=== PATIENT | female | born 1990 | race Caucasian/White ===

== ENCOUNTER 2018-09-13 18:45 | Emergency (ER) | payer OTHER ==
[2018-09-13 18:55] VITALS: BP 114/69; PULSE 79; TEMP 98.2; BMI 32.9
--- NOTE | 2018-09-13 19:31 | PDOC ---
History of Present Illness - General Chief Complaint: Eye Problem Stated Complaint: LEFT/ITCHY/WATERY EYE Time Seen by Provider: 09/13/18 19:10 History Source: Patient - History of Present Illness Initial Comments: 09/13/18 19:26 27-year-old female with left eye redness and itchiness for the last 2 days. No drainage noted. no vision changes no past medical history Past History - Past Medical History Allergies/Adverse Reactions: Allergies Allergy/AdvReac Type Severity Reaction Status Date / Time No Known Drug Allergies Allergy Verified 09/13/18 18:52 Home Medications: Ambulatory Orders Ferrous Sulfate 325 mg PO BID 01/15/15 Vitamins ([facility]) - 1 tab PO DAILY 01/15/15 Cetirizine HCl [Zyrtec -] 10 mg PO DAILY #7 tablet 09/13/18 Olopatadine HCl [Pataday] 1 ml OP DAILY #1 bottle 09/13/18 Asthma: No Cancer: No Cardiac Disorders: No Diabetes: No HTN: No Seizures: No Thyroid Disease: No - Suicide/Smoking/Psychosocial Hx Smoking History: Never smoked Have you smoked in the past 12 months: No Information on smoking cessation initiated: Yes Hx Alcohol Use: No Drug/Substance Use Hx: No Substance Use Type: None Hx Substance Use Treatment: No Review of Systems - Review of Systems Able to Perform ROS?: Yes Is the patient limited [place] Citizen proficient: No Constitutional: No: Symptoms Reported, See HPI, Chills, Diaphoresis, Fever, Loss of Appetite, Malaise, Night Sweats, Weakness, Weight Stable, Unintentional Wgt. Loss, Unexplained wgt Loss, Other HEENTM: Yes: Other Respiratory: No: Symptoms reported, See HPI, Cough, Orthopnea, Shortness of Breath, SOB with Exertion, SOB at Rest, Stridor, Wheezing, Productive cough, Hemoptysis, Other *Physical Exam - Vital Signs Last Vital Signs Temp Pulse Resp BP Pulse Ox 98.2 F 79 18 114/69 98 09/13/18 18:52 09/13/18 18:52 09/13/18 18:52 09/13/18 18:52 09/13/18 18:52 - Physical Exam General Appearance: Yes: Appropriately Dressed HEENT: positive: Other (left conjunctival erythema and watery eyes.No drainage) Integumentary: positive: Normal Color, Dry, Warm Neurologic: positive: Fully Oriented, Alert Medical Decision Making - Medical Decision Making 09/13/18 19:29 A: allergic conjunctivitis P: patanol bibianain *DC/Admit/Observation/Transfer Diagnosis at time of Disposition: Allergic conjunctivitis Qualifiers: Laterality: left Qualified Code(s): H10.12 - Acute atopic conjunctivitis, left eye - Discharge Dispostion Disposition: HOME - Prescriptions Prescriptions: Cetirizine HCl [Zyrtec -] 10 mg PO DAILY #7 tablet Olopatadine HCl [Pataday] 1 ml OP DAILY #1 bottle - Referrals Referrals: Rick Cervantes MD [Staff Physician] - Call tomorrow - Patient Instructions Printed Discharge Instructions: Conjunctivitis Additional Instructions: Instill drops in your left eye once a day. Follow-up with an eye doctor as soon as possible. You were given a referral return to the emergency room for any worsening symptoms. - Post Discharge Activity
== END 2018-09-13 20:37 | disposition home or self-care (01) ==
LOC: JERFT 18:45
DX: H10.12 Acute atopic conjunctivitis, left eye (principal)
CPT/HCPCS: 99281-25

== ENCOUNTER 2020-02-07 15:59 | Emergency (ER) | payer OTHER ==
[2020-02-07 16:10] VITALS: BP 136/100; PULSE 102; TEMP 98.7; BMI 30.8
[2020-02-07 17:11] LABS: HCG,QUALITATIVE URINE Positive
[2020-02-07 17:15] LABS: EPI CELLS >36 /uL (0-25.1); HYALINE CASTS 3 /uL (0-3.1); PH,URINE 5.5 (5.0-8.0); URINE APPEARANCE CLOUDY; URINE BACTERIA 4864 /uL (0-1359); URINE BILIRUBIN NEGATIVE (NEGATIVE); URINE COLOR YELLOW; URINE GLUCOSE (UA) 3+ (NEGATIVE); URINE KETONE NEGATIVE (NEGATIVE); URINE LEUK ESTERASE TRACE (NEGATIVE); URINE NITRITE NEGATIVE (NEGATIVE); URINE PROTEIN NEGATIVE (NEGATIVE); URINE RBC 6 /uL (0-23.9); URINE UROBILINOGEN 0.2 mg/dL (0.2-1.0); URINE WBC 285 /uL (0-25.8)
== END 2020-02-07 19:31 | disposition home or self-care (01) ==
LOC: JERFT 15:59
DX: B37.9 Candidiasis, unspecified (principal); N30.00 Acute cystitis without hematuria; Z3A.01 Less than 8 weeks gestation of pregnancy
CPT/HCPCS: 36415; 76817-TC; 81003; 84702; 84703; 87070; 87077; 87086; 87186; 87205; 99284-25

== ENCOUNTER 2020-02-20 11:32 | Emergency (ER) | payer OTHER ==
[2020-02-20 11:47] VITALS: BMI 30.2
[2020-02-20 13:58] LABS: BASO % 0.5 % (0-2.0); EOS % 2.4 % (0-4.5); HEMATOCRIT 39.9 % (32.4-45.2); LYMPH % 28.7 % (8-40); MCH 25.4 pg (25.7-33.7); MCHC 32.7 g/dl (32.0-36.0); MEAN CELL VOLUME 77.5 fl (80-96); MEAN PLT VOLUME 8.9 fl (7.5-11.1); NEUT % 62.4 % (42.8-82.8); PLATELET COUNT 263 K/MM3 (134-434); RBC 5.15 M/mm3 (3.60-5.2); WHITE BLOOD COUNT 5.9 K/mm3 (4.0-10.0)
[2020-02-20] MEDS ORDERED: ACETAMINOPHEN 325 MG TABLET (FP) PO ONE (15:27)
[2020-02-20] MEDS ORDERED: ACETAMINOPHEN 325 MG TABLET (FP) ONE (16:00)
[2020-02-20 17:48] VITALS: BP 124/79; PULSE 85
[2020-02-20 17:50] LABS: EPI CELLS >36 /uL (0-25.1); HYALINE CASTS 12 /uL (0-3.1); URINE APPEARANCE CLEAR; URINE BACTERIA 2497 /uL (0-1359); URINE BILIRUBIN NEGATIVE (NEGATIVE); URINE COLOR DK YELLOW; URINE GLUCOSE (UA) 2+ (NEGATIVE); URINE KETONE TRACE (NEGATIVE); URINE LEUK ESTERASE 1+ (NEGATIVE); URINE NITRITE NEGATIVE (NEGATIVE); URINE PROTEIN TRACE (NEGATIVE); URINE RBC 21 /uL (0-23.9); URINE WBC 231 /uL (0-25.8)
== END 2020-02-20 17:47 | disposition home or self-care (01) ==
LOC: JER 11:32
DX: O20.0 Threatened abortion (principal); O26.891 Other specified pregnancy related conditions, first trimester; R10.9 Unspecified abdominal pain; Z3A.01 Less than 8 weeks gestation of pregnancy
CPT/HCPCS: 36415; 76801-TC; 81003; 84702; 85025; 86850; 86900; 86901; 87086; 87186; 99284-25

== ENCOUNTER 2020-09-29 07:50 | Inpatient (IN) | payer OTHER ==
[2020-09-29 08:55] VITALS: BMI 33.3
[2020-09-29] MEDS ORDERED: OXYTOCIN 30 UNITS in 0.9% NS 30 UNIT/500 ML INFUS.BAG IVPB SCH (09:15)
[2020-09-29] MEDS ORDERED: ELECTROLYTE-148 SOLN 1,000 ML IV SCH (09:15)
[2020-09-29] MEDS ORDERED: BUTORPHANOL TARTRATE 2 MG/ML VIAL IVPUSH ONE (09:17)
[2020-09-29] MEDS ORDERED: PROMETHAZINE HCL 25 MG/1 ML VIAL IVPB ONE (09:17)
[2020-09-29 10:27] LABS: BASO % 0.5 % (0-2.0); EOS % 0.9 % (0-4.5); HEMATOCRIT 31.9 % (32.4-45.2); HEMOGLOBIN 10.2 GM/dL (10.7-15.3); LYMPH % 29.4 % (8-40); MCH 24.9 pg (25.7-33.7); MCHC 31.9 g/dl (32.0-36.0); MEAN CELL VOLUME 78.1 fl (80-96); MEAN PLT VOLUME 8.9 fl (7.5-11.1); MONO % 5.5 % (3.8-10.2); NEUT % 63.7 % (42.8-82.8); PLATELET COUNT 176 10^3/uL (134-434); RBC 4.09 M/mm3 (3.60-5.2); RDW 19.1 % (11.6-15.6); WHITE BLOOD COUNT 5.7 K/mm3 (4.0-10.0)
[2020-09-29 10:28] LABS: RETICULOCYTES 3.17 % (0.5-1.5)
[2020-09-29 10:36] LABS: INR 0.85 (0.83-1.09); PROTHROMBIN TIME (PATIENT) 10.5 SEC (9.7-13.0)
[2020-09-29 10:39] LABS: ACTIVATED PTT 24.6 SECONDS (25.2-36.5)
[2020-09-29 10:51] LABS: ALBUMIN 2.6 g/dl (3.4-5.0)
[2020-09-29 10:52] LABS: BLOOD UREA NITROGEN 7.4 mg/dL (7-18)
[2020-09-29 10:54] LABS: URIC ACID 4.2 mg/dL (2.6-7.2)
[2020-09-29 10:55] LABS: CREATININE 0.5 mg/dL (0.55-1.3)
[2020-09-29 10:56] LABS: BILIRUBIN,TOTAL 0.3 mg/dL (0.2-1)
[2020-09-29 10:57] LABS: TOT PROT 5.8 g/dl (6.4-8.2)
[2020-09-29 10:59] LABS: GAMMA GLUTAMYL TRANSPEPTIDASE 4 U/L (5-85)
[2020-09-29 11:02] LABS: SGOT/AST 16 U/L (15-37); SGPT/ALT 11 U/L (13-61)
[2020-09-29 12:37] LABS: EPI CELLS 30 /uL (0-25.1); HYALINE CASTS 3 /uL (0-3.1); PH,URINE 6.5 (5.0-8.0); URINE APPEARANCE CLOUDY; URINE BACTERIA 363 /uL (0-1359); URINE BILIRUBIN NEGATIVE (NEGATIVE); URINE COLOR YELLOW; URINE GLUCOSE (UA) NEGATIVE (NEGATIVE); URINE KETONE NEGATIVE (NEGATIVE); URINE LEUK ESTERASE 3+ (NEGATIVE); URINE NITRITE NEGATIVE (NEGATIVE); URINE PROTEIN NEGATIVE (NEGATIVE); URINE RBC 3 /uL (0-23.9); URINE UROBILINOGEN 0.2 mg/dL (0.2-1.0); URINE WBC 133 /uL (0-25.8)
[2020-09-29] MEDS ORDERED: PROMETHAZINE HCL 25 MG/1 ML VIAL ONE (15:10)
[2020-09-29] MEDS ORDERED: BUTORPHANOL TARTRATE 2 MG/ML VIAL ONE (15:10)
[2020-09-29] MEDS ORDERED: OXYTOCIN 20 UNITS in 0.9% NS 20 UNIT/1,000 ML INFUS.BAG IV ONE (16:46)
[2020-09-29] MEDS: OXYTOCIN 20 UNITS in 0.9% NS 20 UNIT/1,000 ML INFUS.BAG IV SCH ×2 (17:00→18:32)
[2020-09-29] MEDS ORDERED: BENZOCAINE 20% 57 GM BOTTLE TP PRN (17:43)
[2020-09-29] MEDS ORDERED: BISACODYL 10 MG SUPP.RECT RC PRN (17:43)
[2020-09-29] MEDS ORDERED: WITCH HAZEL 50% (TUCKS) 40 PAD/JAR PAD TP PRN (17:43)
[2020-09-29] MEDS ORDERED: BENZOCAINE 28 GM HEMORRHOIDAL OINTMENT TP PRN (17:43)
[2020-09-29] MEDS ORDERED: METHYLERGONOVINE MALEATE 0.2 MG/1 ML AMP IM PRN (17:43)
[2020-09-29] MEDS ORDERED: METHYLERGONOVINE MALEATE 0.2 MG/1 ML AMP IM ONE (17:44)
[2020-09-29 18:11] LABS: CORD HCO3 19.7 mmHg (20-29); CORD PCO2 39.6 mmHg (30-78); CORD pH 7.314 (7.14-7.44)
[2020-09-29 18:15] LABS: CORD BASE EXCESS -4.5 mmol/L (0-2); CORD HCO3 21.6 mmHg (20-29); CORD PCO2 43.5 mmHg (30-78); CORD pH 7.314 (7.14-7.44)
[2020-09-29] MEDS ORDERED: INSULIN (NOVOLOG) ASPART 100 UNITS/ML 10ML VIAL SQ ONE (21:45)
[2020-09-30] MEDS: ACETAMINOPHEN 325 MG TABLET (FP) PO PRN ×2 (05:50→09:50)
[2020-09-30] MEDS: IBUPROFEN 600 MG TABLET (FP) PO PRN ×2 (05:50→09:50)
[2020-09-30 09:03] LABS: BASO % 0.4 % (0-2.0); EOS % 0.5 % (0-4.5); HEMOGLOBIN 7.8 GM/dL (10.7-15.3); LYMPH % 23.2 % (8-40); MCH 25.2 pg (25.7-33.7); MCHC 32.4 g/dl (32.0-36.0); MEAN CELL VOLUME 77.8 fl (80-96); MEAN PLT VOLUME 8.8 fl (7.5-11.1); NEUT % 71.9 % (42.8-82.8); PLATELET COUNT 160 10^3/uL (134-434); RBC 3.09 M/mm3 (3.60-5.2); RDW 18.6 % (11.6-15.6); WHITE BLOOD COUNT 8.8 K/mm3 (4.0-10.0)
[2020-09-30] MEDS: PRENATAL VITAMINS W/ FOLIC ACID TABLET (FP) PO SCH (09:50)
[2020-09-30] MEDS: FERROUS SO4 325 MG TABLET (FP) PO SCH ×2 (09:50→17:37)
[2020-09-30] MEDS ORDERED: SENNOSIDES/DOCUSATE COMBO (SENNA PLUS) TABLET (UD) PO PRN (22:00)
[2020-10-01 08:39] VITALS: BP 110/72; PULSE 79; TEMP 98
[2020-10-01] MEDS: PRENATAL VITAMINS W/ FOLIC ACID TABLET (FP) PO SCH (10:41)
[2020-10-01] MEDS: FERROUS SO4 325 MG TABLET (FP) PO SCH (10:42)
== END 2020-10-01 15:30 | disposition home or self-care (01) | DRG 560 ==
LOC: JLDR 07:50 → J3W 20:35
PROVIDERS: ADMIT Obstetrics & Gynecology; ATTEND Obstetrics & Gynecology
PROC: 10E0XZZ Delivery of Products of Conception, External Approach (ICD-10-PCS; principal; 2020-09-29)
PROC: 0KQM0ZZ Repair Perineum Muscle, Open Approach (ICD-10-PCS; 2020-09-29)
DX: O48.0 Post-term pregnancy (principal); O24.424 Gestational diabetes mellitus in childbirth, insulin controlled; O70.1 Second degree perineal laceration during delivery; Z3A.40 40 weeks gestation of pregnancy; Z37.0 Single live birth
CPT/HCPCS: 36415; 36600; 59409; 80048; 80053; 81003; 82803; 82962; 82977; 84450; 84460; 84550; 85025; 85032; 85045; 85610; 85730; 86780; 86850; 86900; 86901; C9803; U0003; U0005

== ENCOUNTER 2021-11-15 18:08 | Emergency (ER) | payer OTHER ==
[2021-11-15 18:28] VITALS: BP 120/82; PULSE 94; RESP 17; TEMP 98.5; BMI 29.2
[2021-11-15] MEDS ORDERED: FLUCONAZOLE 150 MG TABLET PO ONE ×2 (23:17→23:48)
[2021-11-16] LABS: EPI CELLS >36 /uL (0-25.1); HYALINE CASTS 1 /uL (0-3.1); URINE APPEARANCE CLEAR; URINE BACTERIA 719 /uL (0-1359); URINE BILIRUBIN NEGATIVE (NEGATIVE); URINE COLOR YELLOW; URINE GLUCOSE (UA) 3+ (NEGATIVE); URINE KETONE NEGATIVE (NEGATIVE); URINE LEUK ESTERASE NEGATIVE (NEGATIVE); URINE NITRITE NEGATIVE (NEGATIVE); URINE PROTEIN NEGATIVE (NEGATIVE); URINE RBC 2 /uL (0-23.9); URINE UROBILINOGEN 0.2 mg/dL (0.2-1.0); URINE WBC 28 /uL (0-25.8)
== END 2021-11-15 23:30 | disposition home or self-care (01) ==
LOC: JER 18:08
DX: B37.3 Candidiasis of vulva and vagina (principal)
CPT/HCPCS: 81003; 82962; 84703; 99283-25

== ENCOUNTER 2022-04-04 11:40 | Emergency (ER) | payer OTHER ==
[2022-04-04 12:05] VITALS: BP 129/83; PULSE 88; RESP 16; TEMP 98.4; BMI 28.3
== END 2022-04-04 13:18 | disposition home or self-care (01) ==
LOC: JER 11:40 → JERFT 11:40
DX: N64.4 Mastodynia (principal)
CPT/HCPCS: 99283-25

== ENCOUNTER 2022-05-16 19:49 | Observation (INO) | payer OTHER ==
[2022-05-16 23:09] LABS: HCG,QUALITATIVE URINE Positive
[2022-05-16 23:36] LABS: EPI CELLS >36 /uL (0-25.1); HYALINE CASTS 1 /uL (0-3.1); URINE APPEARANCE Cloudy; URINE BACTERIA 7702 /uL (0-1359); URINE BILIRUBIN Negative (NEGATIVE); URINE COLOR Yellow; URINE GLUCOSE (UA) >=1000 (NEGATIVE); URINE KETONE Trace (NEGATIVE); URINE LEUK ESTERASE Small (NEGATIVE); URINE NITRITE Negative (NEGATIVE); URINE PROTEIN Negative (NEGATIVE); URINE RBC 9 /uL (0-23.9); URINE UROBILINOGEN 0.2 mg/dL (0.2-1.0); URINE WBC 460 /uL (0-25.8)
[2022-05-16 23:55] LABS: YEAST NONE SEEN (NEGATIVE)
[2022-05-17 00:54] LABS: BLOOD UREA NITROGEN 12.2 mg/dL (7-18); CALCIUM 8.8 mg/dL (8.5-10.1)
[2022-05-17 00:57] LABS: CREATININE 0.6 mg/dL (0.55-1.3)
[2022-05-17 00:59] LABS: BILIRUBIN,TOTAL 0.3 mg/dL (0.2-1); TOT PROT 7.7 g/dl (6.4-8.2)
[2022-05-17 01:13] LABS: BASO % 0.7 % (0-2.0); EOS % 2.9 % (0-4.5); HEMATOCRIT 33.1 % (32.4-45.2); HEMOGLOBIN 10.4 GM/dL (10.7-15.3); LYMPH % 39.6 % (8-40); MCH 20.9 pg (25.7-33.7); MCHC 31.4 g/dl (32.0-36.0); MEAN CELL VOLUME 66.4 fl (80-96); MEAN PLT VOLUME 8.4 fl (7.5-11.1); MONO % 5.3 % (3.8-10.2); NEUT % 51.5 % (42.8-82.8); PLATELET COUNT 333 10^3/uL (134-434); RBC 4.99 M/mm3 (3.60-5.2); RDW 15.5 % (11.6-15.6); WHITE BLOOD COUNT 7.4 K/mm3 (4.0-10.0)
[2022-05-17] MEDS ORDERED: SODIUM CHLORIDE 1,000 ML IV STA (01:45)
[2022-05-17 02:19] LABS: ANISOCYTOSIS 2+; MACROCYTOSIS 0; TEAR DROP CELLS 1+
[2022-05-17] MEDS ORDERED: DEXTROSE 50%-WATER - 25 GM/50 ML VIAL IVPUSH PRN (06:47)
[2022-05-17] MEDS ORDERED: INSULIN (LEVEMIR) 100 UNITS/ML UNITS SQ SCH (07:00)
[2022-05-17] MEDS: SODIUM CHLORIDE 1,000 ML IV SCH ×2 (07:24→22:38)
[2022-05-17] MEDS: INSULIN SLIDING SCALE (NOVOLOG) 1 VIAL SQ SCH ×4 (07:25→22:38)
[2022-05-17] MEDS: CEFTRIAXONE 1 GM in DEXTROSE 5%-WATER 100 ML IVPB SCH (09:45)
[2022-05-17] MEDS ORDERED: CEFTRIAXONE 1,000 MG in DEXTROSE 5%-WATER - 50 ML IVPB SCH (10:00)
[2022-05-17 10:35] VITALS: BMI 27.3
[2022-05-17] MEDS ORDERED: INSULIN (NOVOLOG) ASPART 100 UNITS/ML 10ML VIAL ONE (10:41)
[2022-05-17 16:21] LABS: HEMATOCRIT 32.3 % (32.4-45.2); HEMOGLOBIN 10.2 GM/dL (10.7-15.3); MCH 20.9 pg (25.7-33.7); MCHC 31.5 g/dl (32.0-36.0); MEAN CELL VOLUME 66.4 fl (80-96); MEAN PLT VOLUME 8.3 fl (7.5-11.1); PLATELET COUNT 307 10^3/uL (134-434); RBC 4.87 M/mm3 (3.60-5.2); RDW 15.7 % (11.6-15.6); WHITE BLOOD COUNT 5.8 K/mm3 (4.0-10.0)
[2022-05-17 16:40] LABS: CALCIUM 8.4 mg/dL (8.5-10.1)
[2022-05-17 16:41] LABS: ALBUMIN 3.6 g/dl (3.4-5.0); BLOOD UREA NITROGEN 6.8 mg/dL (7-18)
[2022-05-17 16:44] LABS: CREATININE 0.5 mg/dL (0.55-1.3); PHOSPHOROUS 3.1 mg/dL (2.5-4.9)
[2022-05-17 16:45] LABS: BILIRUBIN,TOTAL 0.2 mg/dL (0.2-1)
[2022-05-17 19:21] LABS: HIV INTERPRETATION NEGATIVE (NEGATIVE)
[2022-05-17] MEDS: INSULIN (LEVEMIR) 100 UNITS/ML UNITS SQ SCH (22:39)
[2022-05-18] MEDS: INSULIN (NOVOLOG) ASPART 100 UNITS/ML 10ML VIAL SQ SCH ×3 (05:59→16:55)
[2022-05-18] MEDS: SODIUM CHLORIDE 1,000 ML IV SCH (05:59)
[2022-05-18] MEDS: INSULIN SLIDING SCALE (NOVOLOG) 1 VIAL SQ SCH ×4 (05:59→21:53)
[2022-05-18] MEDS: INSULIN (LEVEMIR) 100 UNITS/ML UNITS SQ SCH (05:59)
[2022-05-18] MEDS: CEFTRIAXONE 1 GM in DEXTROSE 5%-WATER 100 ML IVPB SCH (09:33)
[2022-05-18] MEDS ORDERED: ACETAMINOPHEN 325 MG TABLET (FP) PO PRN (09:38)
[2022-05-18] MEDS: PRENATAL VITAMINS W/ FOLIC ACID TABLET (FP) PO SCH (12:03)
[2022-05-18] MEDS ORDERED: DOCUSATE SODIUM 100 MG CAPSULE (FP) PO PRN (13:03)
[2022-05-18] MEDS ORDERED: POLYETHYLENE GLYCOL (HEALTHYLAX) 3350 17 GM PACKET PO PRN (13:03)
[2022-05-18] MEDS: FERROUS SO4 325 MG TABLET (FP) PO SCH (13:32)
[2022-05-18] MEDS: CLOTRIMAZOLE 1% VAGINAL CREAM WITH APPLICATOR 45 GM TUBE VG SCH ×2 (14:41→21:50)
[2022-05-18] MEDS ORDERED: INSULIN (LEVEMIR) 100 UNITS/ML UNITS SQ SCH ×2 (14:45→22:42)
[2022-05-18] MEDS ORDERED: INSULIN (NOVOLOG) ASPART 100 UNITS/ML 10ML VIAL ONE (21:09)
[2022-05-18] MEDS ORDERED: INSULIN (LEVEMIR) 100 UNITS/ML UNITS SQ ONE (21:09)
[2022-05-19] MEDS: SODIUM CHLORIDE 1,000 ML IV SCH (06:41)
[2022-05-19] MEDS: INSULIN SLIDING SCALE (NOVOLOG) 1 VIAL SQ SCH ×3 (06:42→17:04)
[2022-05-19] MEDS: INSULIN (NOVOLOG) ASPART 100 UNITS/ML 10ML VIAL SQ SCH ×3 (06:42→17:03)
[2022-05-19 08:20] LABS: CALCIUM 8.5 mg/dL (8.5-10.1)
[2022-05-19 08:21] LABS: BLOOD UREA NITROGEN 9.2 mg/dL (7-18)
[2022-05-19 08:24] LABS: CREATININE 0.4 mg/dL (0.55-1.3)
[2022-05-19 08:48] LABS: BASO % 0.8 % (0-2.0); EOS % 2.7 % (0-4.5); HEMATOCRIT 31.6 % (32.4-45.2); HEMOGLOBIN 9.9 GM/dL (10.7-15.3); LYMPH % 31.3 % (8-40); MCH 20.6 pg (25.7-33.7); MCHC 31.3 g/dl (32.0-36.0); MEAN CELL VOLUME 65.7 fl (80-96); MEAN PLT VOLUME 8.2 fl (7.5-11.1); MONO % 4.8 % (3.8-10.2); NEUT % 60.4 % (42.8-82.8); PLATELET COUNT 269 10^3/uL (134-434); RBC 4.82 M/mm3 (3.60-5.2)
[2022-05-19 09:29] VITALS: RESP 18
[2022-05-19] MEDS: CEFTRIAXONE 1 GM in DEXTROSE 5%-WATER 100 ML IVPB SCH (09:33)
[2022-05-19] MEDS: FERROUS SO4 325 MG TABLET (FP) PO SCH (09:33)
[2022-05-19] MEDS: PRENATAL VITAMINS W/ FOLIC ACID TABLET (FP) PO SCH (09:34)
[2022-05-19] MEDS ORDERED: ENOXAPARIN NA (PORCINE) 40 MG/0.4 ML DISP.SYRIN SQ SCH (10:00)
[2022-05-19 14:50] VITALS: BP 104/68; PULSE 87; TEMP 98.4
== END 2022-05-19 17:52 | disposition home or self-care (01) ==
LOC: JER 19:49 → INTOOBSV 05-17 03:48 → JERBED 05-17 03:48 → J7W 05-17 07:54
PROVIDERS: ADMIT Internal Medicine
PROC: BU46ZZZ Ultrasonography of Uterus (ICD-10-PCS; principal; 2022-05-17)
PROC: 3E03329 Introduction of Other Anti-infective into Peripheral Vein, Percutaneous Approach (ICD-10-PCS; 2022-05-17)
PROC: 3E0337Z Introduction of Electrolytic and Water Balance Substance into Peripheral Vein, Percutaneous Approach (ICD-10-PCS; 2022-05-17)
DX: O23.41 Unspecified infection of urinary tract in pregnancy, first trimester (principal); N39.0 Urinary tract infection, site not specified; O24.911 Unspecified diabetes mellitus in pregnancy, first trimester; O26.891 Other specified pregnancy related conditions, first trimester; Z3A.01 Less than 8 weeks gestation of pregnancy; L29.2 Pruritus vulvae; R10.30 Lower abdominal pain, unspecified; D64.9 Anemia, unspecified; H10.12 Acute atopic conjunctivitis, left eye; I10 Essential (primary) hypertension; E78.5 Hyperlipidemia, unspecified
CPT/HCPCS: 0241U-QW; 36415; 76775-TC; 76817-TC; 80048; 80053; 81003; 82728; 82962; 83036; 83540; 83550; 83735; 84100; 84443; 84702; 84703; 85025; 85027; 85045; 86850; 86900; 86901; 87077; 87086; 87389; 87491; 87591; 90471; 93005; 93010; 96365; 96372; 96375; 99285-25; G0378